=== PATIENT | male | born 1950 | race Caucasian/White ===

== ENCOUNTER 2018-12-29 14:14 | Emergency (ER) | payer OTHER ==
[~2018-12-29] VITALS: Ht 172.7 cm; Wt 81.7 kg
[2018-12-29] MEDS ORDERED: Golytely Solu4000 ML PO (16:20)
== END 2018-12-29 16:38 | disposition home or self-care (01) ==
LOC: ER 14:14
DX: K59.00 Constipation, unspecified (principal); N32.89 Other specified disorders of bladder
CPT/HCPCS: 74022; 74176; 99284-25

== ENCOUNTER 2023-01-21 17:45 | Emergency (ER) | payer OTHER ==
[~2023-01-21] VITALS: Ht 172.7 cm; Wt 86.2 kg
[~2023-01-21 17:45] MED LIST: Golytely Solu4000 ML PO
[2023-01-21 17:57] VITALS: BP 134/93
[2023-01-21] MEDS ORDERED: Colace100 MG PO (18:12)
[2023-01-21] MEDS ORDERED: CYCL10 PO (18:12)
== END 2023-01-21 19:10 | disposition home or self-care (01) ==
LOC: ER 17:45
DX: M54.50 Low back pain, unspecified (principal); K59.00 Constipation, unspecified; K40.90 Unilateral inguinal hernia, without obstruction or gangrene, not specified as recurrent; Z88.0 Allergy status to penicillin; G40.909 Epilepsy, unspecified, not intractable, without status epilepticus; F17.210 Nicotine dependence, cigarettes, uncomplicated
CPT/HCPCS: 99284; A9270

== ENCOUNTER 2023-05-20 11:56 | Day surgery (SDC) | payer OTHER ==
[~2023-05-20] VITALS: Ht 172.7 cm; Wt 78.1 kg
[~2023-05-20 11:56] MED LIST changes: +CYCL10 PO; +Colace100 MG PO
[2023-05-20] MEDS ORDERED: LAMO100 (13:09)
[2023-05-20] MEDS ORDERED: KEPPRA (13:10)
[2023-05-20 15:01] VITALS: BP 115/76
== END 2023-05-20 15:18 | disposition home or self-care (01) ==
LOC: ORSCSDS 11:56
PROVIDERS: Surgery
PROC: 0DBM8ZX Excision of Descending Colon, Via Natural or Artificial Opening Endoscopic, Diagnostic (ICD-10-PCS; principal; 2023-05-20 13:45)
PROC: 0DBK8ZX Excision of Ascending Colon, Via Natural or Artificial Opening Endoscopic, Diagnostic (ICD-10-PCS; principal; 2023-05-20 13:45)
PROC: 0DBE8ZX Excision of Large Intestine, Via Natural or Artificial Opening Endoscopic, Diagnostic (ICD-10-PCS; principal; 2023-05-20 13:45)
DX: R19.4 Change in bowel habit (principal); D12.4 Benign neoplasm of descending colon; D12.6 Benign neoplasm of colon, unspecified; D37.4 Neoplasm of uncertain behavior of colon; Z87.891 Personal history of nicotine dependence; G40.909 Epilepsy, unspecified, not intractable, without status epilepticus; Z79.899 Other long term (current) drug therapy
CPT/HCPCS: 88305; J2704; J7120

== ENCOUNTER 2023-11-19 09:01 | Day surgery (SDC) | payer MEDICARE ==
[2023-11-19] VITALS (18 sets, daily range): BP systolic 120–147; BP diastolic 65–85
[~2023-11-19] VITALS: Ht 170.2 cm; Wt 74.3 kg
[~2023-11-19 09:01] MED LIST changes: +CeFAZolin Sodium 2,000 MG in NS 50 ML IV SCH; +KEPPRA PO; +LAMO100 PO; +Lactated Ringer's 1,000 ML IV SCH
[2023-11-19] MEDS ORDERED: Ropivacaine 0.5% HCl/Pf 5 MG/ML 20ML VIAL ONE ×2 (10:02→10:09)
[2023-11-19] MEDS ORDERED: Bupivacaine 0.5% Inj 10 ML Vial ONE (10:02)
[2023-11-19] MEDS ORDERED: Rocuronium Bromide 10 MG/ML 5ML Injection IV ONE (10:14)
[2023-11-19] MEDS ORDERED: FentaNYL Citrate 50 MCG/ML 2 ML Injection ONE (10:14)
[2023-11-19] MEDS ORDERED: Dexamethasone Sod Phos 10 MG/ML 1ML VIAL ONE (10:14)
[2023-11-19] MEDS ORDERED: propofoL 20 ML IV ONE (10:14)
[2023-11-19] MEDS ORDERED: Ondansetron HCl 2 MG / ML 2ML Vial ONE ×2 (10:14→13:41)
[2023-11-19] MEDS ORDERED: Ketorolac Tromethamine 30mg Vial ONE (10:14)
[2023-11-19] MEDS ORDERED: HYDROcodone 5-APAP 325 TAB PO PRN (13:15)
[2023-11-19] MEDS ORDERED: Ondansetron HCl 2 MG / ML 2ML Vial IV PRN (13:40)
--- NOTE | 2023-11-19 13:51 | NUR ---
PT C/O DIZZINESS NOW THAT NAUSEA IMPROVED POST ZOFRAN. READING GLASSES PLACED ON PATIENT IN ATTEMPTS TO AID. PT STS SLIGHT IMPROVED, BUT STILL BLURRY & DIZZY. PT DECLINING PREVIOUSLY REQUESTED PAIN PILL AT THIS TIME.
--- NOTE | 2023-11-19 15:00 | NUR ---
DR SR HERE TO SEE PT. DISCUSSED PT'S STATUS. PT CONT TO REPORT DOUBLE VISION. DR ASSESSED PT. DR REPORTS TO CONT TO MONITOR PT. REPORTS TO MONITOR PT'S AMBULATION AFTER HE RESTS IT WILL TAKE TIME FOR THE MEDICATIONS TO GET OUT OF HIS SYSTEM.
--- NOTE | 2023-11-19 17:01 | NUR ---
PT BEEN UP TO CHAIR HE REPORTED TO BE MORE COMFORTABLE IN CHAIR. Patient up to Ambulate independently. Gait steady. PT REPORTS VISION BETTER. PT DENIES DIZZINESS, REPORTS FEELING MUCH BETTER. Discharge instructions reviewed with patient. Patient verbalizes understanding. Copy given to patient to take home. Patient States Post-Procedure ride home has been arranged. Discharged via wheelchair to private car for ride home. PT TOLERATING PO. ABD SITES C/D/I. PT REPORTS PAIN TOLERABLE, DENIES NAUSEA. REPORTS READY TO GO HOME.
== END 2023-11-19 17:01 | disposition home or self-care (01) ==
LOC: ORSCMMR 09:01 → ORD 10:30 → ORSCMMR 10:30
PROVIDERS: Surgery
PROC: 8E0W4CZ Robotic Assisted Procedure of Trunk Region, Percutaneous Endoscopic Approach (ICD-10-PCS; principal; 2023-11-19 10:30)
PROC: 0YUA4JZ Supplement Bilateral Inguinal Region with Synthetic Substitute, Percutaneous Endoscopic Approach (ICD-10-PCS; principal; 2023-11-19 10:30)
DX: K40.20 Bilateral inguinal hernia, without obstruction or gangrene, not specified as recurrent (principal); G40.909 Epilepsy, unspecified, not intractable, without status epilepticus; Z79.899 Other long term (current) drug therapy
CPT/HCPCS: A9270; C1781; J0690; J1100; J1885; J2405; J2704; J2795; J3010; J7120